=== PATIENT | female | born 1995 | race Caucasian/White ===

== ENCOUNTER 2017-04-30 14:09 | Emergency (ER) | payer OTHER ==
[2017-04-30 15:27] LABS: BASO % 0.2 % (0.0-1.0); EOS % 0.4 % (0.0-3.0); HEMATOCRIT 36.5 % (36.0-47.0); HEMOGLOBIN 12.7 g/dl (12.0-16.0); IMMATURE GRANULOCYTE % 0.3 % (0-0); LYMPH # 1.3 10^3/uL (1.5-6.5); LYMPH % 13.2 % (24.0-44.0); MEAN CORPUSCULAR HEMOGLOBIN 31.8 pg (27.0-33.0); MEAN CORPUSCULAR HGB CONC 34.8 g/dl (32.0-36.5); MEAN CORPUSCULAR VOLUME 91.3 fl (80.0-96.0); MONO # 0.4 10^3/uL (0.0-0.8); NEUTROPHILS # 8.2 10^3/uL (1.8-7.7); NEUTROPHILS % 81.9 % (36.0-66.0); PLATELET COUNT, AUTOMATED 171 10^3/uL (150-450); RED CELL DISTRIBUTION WIDTH 12.1 % (11.5-14.5); WHITE BLOOD COUNT 10.1 10^3/uL (4.0-10.0)
[2017-04-30] MEDS: NS 1,000 ML IV ×4 (15:31→17:30)
[2017-04-30 15:32] LABS: KETONE, URINE AUTO RFX NEGATIVE (NEGATIVE); MUCUS, URINE RFX SMALL (NEGATIVE); NITRITE, URINE AUTO RFX NEGATIVE (NEGATIVE); RBC, URINE AUTO RFX 2 /HPF (0-3); SPECIFIC GRAVITY UR AUTO RFX 1.016 (1.002-1.035); SQUAM EPITHELIAL CELL UR AURFX 11 /HPF (0-6)
[2017-04-30] MEDS: ONDANSETRON 4MG/2ML VIAL (J2405) IV ×4 (15:32→17:54)
[2017-04-30 15:38] LABS: LEUKOCYTE ESTERASE UR AUTO RFX 3+ (NEGATIVE); WBC, URINE AUTO RFX 12 /HPF (0-3)
[2017-04-30] MEDS: ACETAMINOPHEN SUSP DYE FREE 160 MG/5 ML UDC PO ×2 (15:42)
[2017-04-30] MEDS ORDERED: MORPHINE 2 MG/ML 1ML SYRINGE IV ×2 (15:45)
[2017-04-30 16:32] LABS: ALBUMIN 3.5 GM/DL (3.2-5.2); ALBUMIN/GLOBULIN RATIO 1.09 (1.00-1.93); ALKALINE PHOSPHATASE 40 U/L (45-117); ALT/SGPT 8 U/L (12-78); ANION GAP 4 MEQ/L (8-16); AST/SGOT 9 U/L (7-37); BILIRUBIN,TOTAL 0.3 MG/DL (0.2-1.0); BLOOD UREA NITROGEN 7 MG/DL (7-18); CALCIUM LEVEL 8.7 MG/DL (8.5-10.1); CARBON DIOXIDE LEVEL 25 MEQ/L (21-32); CHLORIDE LEVEL 107 MEQ/L (98-107); CREATININE FOR GFR 0.55 MG/DL (0.55-1.30); GLUCOSE, FASTING 89 MG/DL (70-100); LIPASE 66 U/L (73-393); POTASSIUM SERUM 3.9 MEQ/L (3.5-5.1); SODIUM LEVEL 136 MEQ/L (136-145); TOTAL PROTEIN 6.7 GM/DL (6.4-8.2)
[2017-04-30] MEDS: MORPHINE 2 MG/ML 1ML SYRINGE IV ×2 (17:54)
== END 2017-04-30 20:22 | disposition home or self-care (01) ==
LOC: M ED 14:09
DX: O99.89 Other specified diseases and conditions complicating pregnancy, childbirth and the puerperium (principal); R10.2 Pelvic and perineal pain; O23.42 Unspecified infection of urinary tract in pregnancy, second trimester; Z3A.13 13 weeks gestation of pregnancy; O99.331 Smoking (tobacco) complicating pregnancy, first trimester; Z79.899 Other long term (current) drug therapy; Z91.89 Other specified personal risk factors, not elsewhere classified
CPT/HCPCS: J2405

== ENCOUNTER 2017-06-09 04:31 | Emergency (ER) | payer OTHER ==
[2017-06-09 05:05] LABS: BASO % 0.3 % (0.0-1.0); EOS # 0.1 10^3/uL (0.0-0.50); EOS % 0.7 % (0.0-3.0); HEMATOCRIT 34.4 % (36.0-47.0); HEMOGLOBIN 11.8 g/dl (12.0-16.0); IMMATURE GRANULOCYTE % 0.3 % (0-3.0); LYMPH # 1.7 10^3/uL (1.5-6.5); LYMPH % 14.4 % (24.0-44.0); MEAN CORPUSCULAR HEMOGLOBIN 32.1 pg (27.0-33.0); MEAN CORPUSCULAR HGB CONC 34.3 g/dl (32.0-36.5); MEAN CORPUSCULAR VOLUME 93.5 fl (80.0-96.0); MONO # 0.5 10^3/uL (0.0-0.8); MONO % 4.3 % (0.0-5.0); NEUTROPHILS # 9.4 10^3/uL (1.8-7.7); PLATELET COUNT, AUTOMATED 191 10^3/uL (150-450); RED BLOOD COUNT 3.68 10^6/uL (4.00-5.40); RED CELL DISTRIBUTION WIDTH 12.7 % (11.5-14.5); WHITE BLOOD COUNT 11.8 10^3/uL (4.0-10.0)
[2017-06-09 05:42] LABS: HCG, SERUM QUANTITATIVE 25878 MIU/ML
== END 2017-06-09 06:08 | disposition home or self-care (01) ==
LOC: M ED 04:31
DX: O20.0 Threatened abortion (principal); Z3A.18 18 weeks gestation of pregnancy; O99.332 Smoking (tobacco) complicating pregnancy, second trimester; F17.200 Nicotine dependence, unspecified, uncomplicated; Z91.048 Other nonmedicinal substance allergy status
CPT/HCPCS: 76817

== ENCOUNTER 2017-06-16 10:56 | Emergency (ER) | payer OTHER ==
[2017-06-16 11:40] LABS: BASO % 0.3 % (0.0-1.0); EOS # 0.1 10^3/uL (0.0-0.50); EOS % 0.8 % (0.0-3.0); HEMATOCRIT 31.4 % (36.0-47.0); HEMOGLOBIN 10.7 g/dl (12.0-16.0); IMMATURE GRANULOCYTE % 0.5 % (0-3.0); LYMPH # 1.5 10^3/uL (1.5-6.5); LYMPH % 15.6 % (24.0-44.0); MEAN CORPUSCULAR HEMOGLOBIN 32.3 pg (27.0-33.0); MEAN CORPUSCULAR HGB CONC 34.1 g/dl (32.0-36.5); MEAN CORPUSCULAR VOLUME 94.9 fl (80.0-96.0); MONO # 0.5 10^3/uL (0.0-0.8); MONO % 5.4 % (0.0-5.0); NEUTROPHILS # 7.3 10^3/uL (1.8-7.7); NEUTROPHILS % 77.4 % (36.0-66.0); PLATELET COUNT, AUTOMATED 167 10^3/uL (150-450); RED BLOOD COUNT 3.31 10^6/uL (4.00-5.40); RED CELL DISTRIBUTION WIDTH 12.9 % (11.5-14.5); WHITE BLOOD COUNT 9.4 10^3/uL (4.0-10.0)
[2017-06-16 12:23] LABS: ALBUMIN 3.1 GM/DL (3.2-5.2); ALBUMIN/GLOBULIN RATIO 1.07 (1.00-1.93); ALKALINE PHOSPHATASE 52 U/L (45-117); ALT/SGPT 13 U/L (12-78); ANION GAP 6 MEQ/L (8-16); AST/SGOT 12 U/L (7-37); BILIRUBIN,TOTAL 0.2 MG/DL (0.2-1.0); BLOOD UREA NITROGEN 2 MG/DL (7-18); CALCIUM LEVEL 8.7 MG/DL (8.5-10.1); CARBON DIOXIDE LEVEL 26 MEQ/L (21-32); CHLORIDE LEVEL 107 MEQ/L (98-107); CREATININE FOR GFR 0.43 MG/DL (0.55-1.30); GLUCOSE, FASTING 77 MG/DL (70-100); HCG, SERUM QUANTITATIVE 22684 MIU/ML; POTASSIUM SERUM 3.9 MEQ/L (3.5-5.1); SODIUM LEVEL 139 MEQ/L (136-145)
== END 2017-06-16 14:50 | disposition home or self-care (01) ==
LOC: M ED 10:56
DX: O26.891 Other specified pregnancy related conditions, first trimester (principal); R11.0 Nausea; Z3A.00 Weeks of gestation of pregnancy not specified; Z91.018 Allergy to other foods; Z91.048 Other nonmedicinal substance allergy status; Z79.899 Other long term (current) drug therapy
CPT/HCPCS: 76817

== ENCOUNTER 2017-09-07 21:59 | Outpatient (CLI) | payer OTHER ==
[2017-09-08 00:33] LABS: APPEARANCE, URINE CLEAR (CLEAR); BACTERIA, URINE AUTO NEGATIVE (NEGATIVE); BILIRUBIN, URINE AUTO NEGATIVE (NEGATIVE); BLOOD, URINE BLOOD 2+ (NEGATIVE); COLOR, URINE YELLOW (YELLOW); GLUCOSE, URINE (UA) AUTO NEGATIVE (NEGATIVE); KETONE, URINE AUTO NEGATIVE (NEGATIVE); LEUKOCYTE ESTERASE, URINE AUTO NEGATIVE (NEGATIVE); MUCUS, URINE SMALL (NEGATIVE); NITRITE, URINE AUTO NEGATIVE (NEGATIVE); PROTEIN, URINE AUTO NEGATIVE (NEGATIVE); RBC, URINE AUTO 0 /HPF (0-3); SPECIFIC GRAVITY URINE AUTO 1.008 (1.002-1.035); SQUAMOUS EPITHELIAL CELL UR AU 5 /HPF (0-6); UROBILINOGEN, URINE AUTO 0.2 mg/dL (0.0-2.0); WBC, URINE AUTO 2 /HPF (0-3)
== END 2017-09-08 00:20 | disposition home or self-care (01) ==
LOC: M LDO 21:59
DX: O47.03 False labor before 37 completed weeks of gestation, third trimester (principal); Z3A.31 31 weeks gestation of pregnancy; O26.893 Other specified pregnancy related conditions, third trimester; M54.5 Low back pain
CPT/HCPCS: 59025

== ENCOUNTER 2017-11-12 21:20 | Outpatient (CLI) | payer OTHER | END 2017-11-12 23:50 | disposition home or self-care (01) | LOC: M LDO 21:20 | DX: O47.1 False labor at or after 37 completed weeks of gestation (principal); Z3A.40 40 weeks gestation of pregnancy | CPT/HCPCS: 76815 ==

== ENCOUNTER 2017-11-13 10:02 | Inpatient (IN) | payer OTHER ==
[2017-11-13] MEDS: LACTATED RINGER'S 1000 ML IV (12:04)
[2017-11-13 12:18] LABS: HEMATOCRIT 37.2 % (36.0-47.0); HEMOGLOBIN 12.3 g/dl (12.0-15.5); MEAN CORPUSCULAR HEMOGLOBIN 31.9 pg (27.0-33.0); MEAN CORPUSCULAR HGB CONC 33.1 g/dl (32.0-36.5); MEAN CORPUSCULAR VOLUME 96.4 fl (80.0-96.0); PLATELET COUNT, AUTOMATED 188 10^3/uL (150-450); RED BLOOD COUNT 3.86 10^6/uL (4.00-5.40); RED CELL DISTRIBUTION WIDTH 13.2 % (11.5-14.5); WHITE BLOOD COUNT 14.3 10^3/uL (4.0-10.0)
[2017-11-13] MEDS ORDERED: FENTANYL 2MCG/ML ROPIVACAINE 0.2% IN 0.9% NACL 200ML IVBAG As Ordered (13:01)
[2017-11-13 13:07] LABS: HBSAG L&D NEGATIVE (NEGATIVE)
[2017-11-13] MEDS ORDERED: ePHEDrine SULFATE 25 MG/5 ML(5MG/ML) SYRINGE IV (14:15)
[2017-11-13] MEDS ORDERED: FENTANYL/ROPIVACAINE/NACL BAG 200 ML EPIDURAL (14:15)
[2017-11-13] MEDS ORDERED: diphenhydrAMINE INJ 50MG/ML VIAL (J1200) IV (14:15)
[2017-11-13] MEDS ORDERED: REFRIGERATOR IV KEYS XX (14:15)
[2017-11-13] MEDS ORDERED: ONDANSETRON 4MG/2ML VIAL (J2405) IV (14:15)
[2017-11-13] MEDS ORDERED: LACTATED RINGER'S 1000 ML IV (14:15)
[2017-11-13] MEDS ORDERED: NALOXONE INJ 0.4 MG/1 ML VIAL (J2310) IV (14:15)
[2017-11-13] MEDS ORDERED: EPIDURAL COMMENT XX (14:15)
[2017-11-13] MEDS ORDERED: EPIDURAL/PCA KEYS XX (14:15)
[2017-11-13] MEDS: LR 1,000 ML IV (15:07)
[2017-11-13] MEDS ORDERED: OXYTOCIN 30 UNITS IN 0.9% NaCl 500ML IV BAG (J2590) As Ordered (19:04)
[2017-11-13] MEDS ORDERED: ACETAMINOPHEN TAB 650MG DOSE (2X325MG) PO (21:15)
[2017-11-13] MEDS ORDERED: METOCLOPRAMIDE INJ 10MG/2ML VIAL (J2765) IV (21:15)
[2017-11-13] MEDS ORDERED: MEASLES,MUMPS,RUBELLA VACCINE INJ (MMR-II) (90707) SC (21:15)
[2017-11-13] MEDS ORDERED: RHOGAM 300 MCG (1500 IU) INJ (J2790) IM (21:15)
[2017-11-13] MEDS: IBUPROFEN 800 MG TAB PO (22:07)
[2017-11-13] MEDS: DOCUSATE SODIUM 100 MG CAP PO (23:47)
[2017-11-13] MEDS: OXYTOCIN DRIP 30 UNITS in APPROPRIATE DILUENT 1 EA IV (23:48)
[2017-11-14] MEDS: DIBUCAINE 1% OINTMENT 30GM TOP ×2 (02:49→17:26)
[2017-11-14] MEDS: DOCUSATE SODIUM 100 MG CAP PO ×2 (09:00→20:34)
[2017-11-14] MEDS: PRENATAL VITAMINS CHEWABLE TABLET PO (09:06)
[2017-11-15] MEDS: DOCUSATE SODIUM 100 MG CAP PO (08:55)
[2017-11-15] MEDS: PRENATAL VITAMINS CHEWABLE TABLET PO (08:55)
[2017-11-15] MEDS: DIBUCAINE 1% OINTMENT 30GM TOP (13:05)
== END 2017-11-15 13:40 | disposition home or self-care (01) | DRG 775 ==
LOC: M LDO 10:02 → M LDI 11:24 → M OBS 22:54
PROVIDERS: Obstetrics & Gynecology
PROC: 10E0XZZ Delivery of Products of Conception, External Approach (ICD-10-PCS; principal; 2017-11-13)
PROC: 0HQ9XZZ Repair Perineum Skin, External Approach (ICD-10-PCS; 2017-11-13)
DX: O48.0 Post-term pregnancy (principal); Z37.0 Single live birth; Z3A.40 40 weeks gestation of pregnancy; O70.0 First degree perineal laceration during delivery; D64.9 Anemia, unspecified; O99.02 Anemia complicating childbirth